=== PATIENT | male | born 1945 | race Caucasian/White ===

== ENCOUNTER 2017-02-25 10:50 | Emergency (ER) | payer OTHER ==
[~2017-02-25] VITALS: Ht 170.2 cm; Wt 81.6 kg
--- NOTE | 2017-02-25 12:13 | ED GENERAL ADULT ---
History of Present Illness General Chief Complaint: General Adult Stated Complaint: JOINT PAIN Source: patient Exam Limitations: no limitations Vital Signs & Intake/Output Vital Signs & Intake/Output Vital Signs Date Time Temp Pulse Resp B/P B/P Pulse O2 O2 Flow FiO2 Mean Ox Delivery Rate 02/25 1151 Room Air 02/25 1110 97.7 103 16 126/79 97 Room Air Allergies Coded Allergies: amoxicillin (Intermediate, FEELS WEIRD 02/25/17) Opioids - Morphine Analogues (UNKNOWN 02/25/17) Reconcile Medications Benazepril/Hydrochlorothiazide (Benazepril-Hctz 20-25 MG Tab) 20 MG-25 MG TABLET 1 TAB PO DAILY HEART (Reported) Bimatoprost (Lumigan) 0.01 % DROPS 1 GTT OPH QPM GLAUCOMA (Reported) Dorzolamide HCl/Timolol Maleat (Cosopt Eye Drops) 22.3 MG-6.8 MG/ML DROPS 1 GTT OPH BID EYE PROBLEMS (Reported) Prednisone 10 MG TABLET 6 TAB PO DAILY joint paint Take 60 mg of prednisone once a day on days 1 through 7 Take 40 mg of prednisone once a day on days 8 through 10 take 20 mg of prednisone once a day on days 11 through 13 Take 10 mg of prednisone once a day on day 14 Triage Note: PT HERE FOR JOINT PAIN THAT STARTED 2 MONTSH AGO. PT STATES IT HAS BEEN GETTING PROGRESSIVELY WORSE. PT STATES HE WAS TOLD HE HAS ANEMIA ALSO. PT HAD LYME TEST THAT SHOWENED NEGATIVE,. Triage Nurses Notes Reviewed? yes HPI: 71-year-old male with a history of anemia, hypertension, carpal tunnel syndrome, status post carpal tunnel release 2 months ago presenting with polyarthralgias 1 month. Reports joint pain mostly to bilateral shoulders and bilateral hip joints, pain is worse in the morning and then will gradually improve throughout the day. Has tried Tylenol and NSAIDs with minimal improvement. Denies fevers, joint swelling, URI symptoms, cough. Recently seen by PMD for the same, tested for Lyme and was found to be negative. (TOMER REDDY,GEOVANNI) Past History Travel History Traveled to [place] past 21 day No Medical History Any Pertinent Medical History? see below for history Cardiovascular: hypertension Blood Disorders: anemia Tetanus Vaccine: Surgical History Surgical History: non-contributory Psychosocial History What is your primary language Setswana Tobacco Use: Never used ETOH Use: occasional use Illicit Drug Use: denies illicit drug use Family History Hx Contributory? No (GEOVANNI JEFF PA-C) Review of Systems Review of Systems Constitutional: Reports: no symptoms. EENTM: Reports: no symptoms. Respiratory: Reports: no symptoms. Cardiovascular: Reports: no symptoms. GI: Reports: no symptoms. Genitourinary: Reports: no symptoms. Musculoskeletal: Reports: joint pain. Denies: back pain, joint swelling, muscle pain, muscle stiffness, neck pain. Skin: Reports: no symptoms. Neurological/Psychological: Reports: no symptoms. (GEOVANNI JEFF PA-C) Physical Exam Physical Exam General Appearance: well developed/nourished, no apparent distress, alert, comfortable Head: atraumatic Ears, Nose, Throat: normal ENT inspection Respiratory: normal breath sounds, lungs clear Cardiovascular: regular rate/rhythm, normal peripheral pulses Gastrointestinal: soft, non-tender Extremities: normal inspection, normal range of motion, on exam of the joints there is no erythema, edema, increased warmth. none of the joints are tender to palpation and he has full unrestricted range of motion of all joints. Normal sensation and motor strength 5 out of 5 in all extremities. distal palpable pulses in upper and lower extremities. Patient is able to ambulate with a steady gait. Neurologic/Psych: awake, alert, oriented x 3, normal gait Core Measures ACS in differential dx? No CVA/TIA Diagnosis: No Severe Sepsis Present: No Septic Shock Present: No (GEOVANNI JEFF PA-C) Progress Differential Diagnoses I considered the following diagnoses in my evaluation of the patient: [ Polymyalgia rheumatica versus rheumatoid arthritis versus osteoarthritis versus Lyme versus gout versus viral syndrome ] Plan of Care: Orders Procedure Date/time Status WESTERGREN SED RATE 02/25 1244 Complete Laboratory Tests 02/25/17 1259: ESR Westergren 42 H Patient's history sounds concerning for polymyalgia rheumatica, although there may be alternative underlying rheumatologic disease process. ESR is elevated to 42. Will trial two-week course of prednisone, and patient will follow-up with Dr. Rodriguez (rheumatology). (GEOVANNI JEFF PA-C) Initial ED EKG: none (GEOVANNI JEFF PA-C) Departure Departure Disposition: HOME OR SELF CARE Condition: Stable Clinical Impression Primary Impression: Polyarthralgia Referrals: AL KAYE,DANIEL Mcdowell (PCP/Family) Additional Instructions: You will be placed on a 14 and course of prednisone with the following schedule: Take 60 mg of prednisone once a day for days 1 through 7 Take 40 mg of prednisone once a day on days 8 through 10 Take 20 mg of prednisone once a day on days 11 and 13 Take 10 mg of prednisone once a day on day 14 Follow-up with for further evaluation Return to the ED for any new or worsening symptoms Departure Forms: Customer Survey General Discharge Information Prescriptions: Current Visit Scripts Prednisone 6 TAB PO DAILY 14 Days Take 60 mg of prednisone once a day on days 1 through 7 Take 40 mg of prednisone once a day on days 8 through 10 take 20 mg of prednisone once a day on days 11 through 13 Take 10 mg of prednisone once a day on day 14 (TOMER REDDY,GEOVANNI) PA/PRINTING MECHANIST Co-Sign Statement Statement: ED Attending supervision documentation- [X] I saw and evaluated the patient. I have also reviewed all the pertinent lab results and diagnostic results. I agree with the findings and the plan of care as documented in the PA's/PRINTING MECHANIST's documentation. [X] I have reviewed the ED Record and agree with the PA's/PRINTING MECHANIST's documentation. [] Additions or exceptions (if any) to the PAs/PRINTING MECHANIST's note and plan are summarized below: [] (SHANDRA CATES,HANG Murrell) Critical Care Note Critical Care Note Critical Care Time: non-applicable (GEOVANNI JEFF PA-C)
[2017-02-25] MEDS ORDERED: BENAZEPRIL-HCT1 EAC3 PO (12:37)
[2017-02-25] MEDS ORDERED: LUMIGAN2.5 ML OPH (12:38)
[2017-02-25] MEDS ORDERED: COSOPT EYE DROP10 ML OPH (12:39)
[2017-02-25] MEDS ORDERED: PREDNISONE10 M2 PO (14:44)
[2017-02-25 14:50] VITALS: BP 123/72
== END 2017-02-25 14:51 ==
LOC: ERH 10:50
DX: M25.50 Pain in unspecified joint (principal)